=== PATIENT | male | born 2000 | race Hispanic/Latino ===

== ENCOUNTER 2024-03-18 11:24 | Emergency (ER) | payer OTHER ==
[2024-03-18 11:56] LABS: Bacteria/HPF None Seen HPF (None Seen); Bilirubin Negative (Negative); Blood, Urine 3+ (Negative); CAUTI Indications for Culture Dysuria,urgency,freq; Clarity Clear (Clear); Glucose, Urine (Dipstick) Normal (Negative); Ketone, Urine Negative (Negative); Leukocyte Negative Leu/uL (Negative); Nitrite Negative (Negative); Protein, Urine (Dipstick) 30 mg/dL (Neg-Trace); RBC/HPF Greater than 50 HPF (0-3); Specific Gravity, Urine 1.022 (1.002-1.036); Squamous Epithelial None Seen HPF (0-3); Urobilinogen Normal mg/dL (Less than 2); WBC/HPF 0-3 HPF (0-3)
[2024-03-18 11:58] LABS: Urine Culture Reflex No No
[2024-03-18 12:21] LABS: #Basophils 0.04 10x3/uL (0.0-0.2); #Eosinophils Less than 0.03 10x3/uL (0.0-0.7); %Basophils 0.3 % (0.0-1.0); %Lymphocytes 5.2 % (21.0-51.0); %Monocytes 3.8 % (0.0-10.0); %Neutrophils 90.2 % (42.0-75.0); Hematocrit 46.2 % (42.0-52.0); Hemoglobin 14.8 g/dL (14.0-18.0); Mean Corpuscular Hemoglobin 25.5 pg (27.0-31.0); Mean Corpuscular Volume 79.7 fL (78.0-98.0); Mean Platelet Volume 10.8 fL (7.4-10.4); Platelet Count 301 10x3/uL (130-400); RBC Distribution Width 13.9 % (11.5-14.5)
[2024-03-18 12:46] LABS: Anion Gap 12 mmol/L (10-20); BUN (Urea Nitrogen) 14 mg/dL (8.9-20.6); Calc. Creatinine Clearance 0 mL/min (70-130); Calcium 9.7 mg/dL (7.8-10.44); Carbon Dioxide 24 mmol/L (22-29); Chloride 106 mmol/L (98-107); Estimated GFR 98; Glucose 109 mg/dL (70-105); Potassium 4.4 mmol/L (3.5-5.1); Sodium 138 mmol/L (136-145)
[2024-03-18] MEDS ORDERED: Ketorolac Tromethamine 30 MG (1 mL) VIAL ONE ×3 (14:11→15:26)
[2024-03-18] MEDS ORDERED: Piperacillin/Tazobactam 3.375 GM VIAL ONE (14:11)
[2024-03-18] MEDS ORDERED: Sodium Chloride 0.9% 100 ML ONE (14:11)
[2024-03-18] MEDS ORDERED: EPINEPHrine 1 MG/ML VIAL ONE (14:13)
[2024-03-18] MEDS ORDERED: Bupivacaine PF 0.5% 30 ML VIAL ONE (14:13)
[2024-03-18] MEDS ORDERED: Ondansetron PF 4 MG/2 ML Vial ONE (14:46)
[2024-03-18] MEDS ORDERED: Midazolam HCl 2 mg/2 ml Vial ONE (14:46)
[2024-03-18] MEDS ORDERED: fentaNYL PF 100 MCG/2 ML SYRINGE ONE (14:46)
[2024-03-18] MEDS ORDERED: Rocuronium Bromide 10 MG/ML (10ML VIAL) ONE (14:46)
[2024-03-18] MEDS ORDERED: Lidocaine 1% PF 5 ML VIAL ONE (14:46)
[2024-03-18] MEDS ORDERED: PROPOFOL 20 ML ONE (14:46)
[2024-03-18] MEDS ORDERED: SUCCINYLCHOLINE/SOD CL,ISO/PF 200 MG/10 ML SYRINGE FS ONE (14:46)
[2024-03-18] MEDS ORDERED: Dexamethasone 4 mg/ml Vial ONE (14:46)
[2024-03-18] MEDS ORDERED: Dexmedetomidine 200 MCG/2 ML VIAL ONE (14:48)
[2024-03-18] MEDS ORDERED: SUGAMMADEX SODIUM 200 MG/2 ML VIAL ONE (14:50)
[2024-03-18] MEDS ORDERED: traMADol HCl 50 MG TAB ONE (16:31)
== END 2024-03-18 15:26 | disposition admitted as inpatient to this hospital (09) ==
LOC: ERS 11:24
PROC: 0DTJ4ZZ Resection of Appendix, Percutaneous Endoscopic Approach (ICD-10-PCS; principal; 2024-03-18)
DX: K35.80 Unspecified acute appendicitis (principal)
CPT/HCPCS: 36415; 74176; 80048; 81001; 83605; 85025; 86141; 88304; 96374; A4649; C1713; J0171; J0665; J1100; J1885; J2250; J2405; J2543; J2704